=== PATIENT | female | born 1960 | race Two or more races ===

== ENCOUNTER 2019-09-04 23:13 | Emergency (ER) | payer SELFPAY ==
[~2019-09-04] VITALS: Ht 157.5 cm; Wt 77.1 kg
[2019-09-05 00:08] LABS: Basophils # (auto) 0.1 uL; Basophils % (auto) 0.8 % (0.0-2.0); Eosinophils # (auto) 0.3 uL; Eosinophils % (auto) 2.8 % (0.0-7.0); Hematocrit 39.2 % (36.0-46.0); Hemoglobin 13.2 g/dL (12.2-16.2); Lymphocytes # (auto) 2.6 uL; Lymphocytes % (auto) 28.1 % (10.0-50.0); Mean Corpuscular Hemoglobin 30.5 pg (28.0-32.0); Mean Corpuscular Hgb Conc. 33.8 g/dL (32.0-36.0); Mean Corpuscular Volume 90.5 fL (80.0-100.0); Monocytes # (auto) 0.6 uL; Monocytes % (auto) 6.6 % (0.0-12.0); Neutrophils # (auto) 5.7 uL; Neutrophils % (auto) 61.7 % (37.0-80.0); Platelet Count (auto) 289 10^3/uL (140-450); Red Blood Cells 4.34 10^6/uL (4.0-5.20); Red Cell Distribution Width 13.8 % (11.8-14.3); White Blood Cell 9.2 10^3/uL (4.4-10.8)
[2019-09-05 00:25] LABS: Albumin 3.7 g/dL (3.4-5.0); BUN/Creatinine Ratio 14.1; Calcium 9.1 mg/dL (8.5-10.1); Potassium 3.5 mmol/L (3.5-5.1)
[2019-09-05 00:29] LABS: Bilirubin, Total 0.5 mg/dL (0.2-1.0); Total Protein 7.9 g/dL (6.4-8.2)
[2019-09-05 00:37] LABS: INR < 0.93 (0.9-1.15); Partial Thromboplastin Time 26.8 sec (23.64-32.05)
[2019-09-05 14:00] VITALS: BP 155/71
== END 2019-09-05 14:15 | disposition home or self-care (01) ==
LOC: ER 23:21
DX: I10 Essential (primary) hypertension (principal); E11.65 Type 2 diabetes mellitus with hyperglycemia; E03.8 Other specified hypothyroidism; Z98.51 Tubal ligation status; Z90.89 Acquired absence of other organs
CPT/HCPCS: 36415; 71046; 80053; 81002; 83036; 83880; 84443; 84484; 85025; 85610; 85730; 93005